=== PATIENT | female | born 1990 | race Caucasian/White ===

== ENCOUNTER 2023-08-10 20:05 | Emergency (ER) | payer SELFPAY ==
[~2023-08-10] VITALS: Ht 162.6 cm; Wt 69.0 kg
[2023-08-10 20:29] VITALS: O2SAT 100
[2023-08-10 21:06] LABS: BASOPHILS % 0.3 % (0.0-2.0); EOSINOPHILS % 0.6 % (0.0-5.0); HEMATOCRIT. 37.6 % (36.0-48.0); HEMOGLOBIN. 12.5 g/dL (12.0-16.0); LYMPHOCYTES % 32.2 % (20.0-50.0); MEAN CORPUSCULAR HEMOGLOBIN 30.3 pg (28.0-32.0); MEAN CORPUSCULAR HGB CONC 33.1 g/dL (31.0-37.0); MEAN CORPUSCULAR VOLUME 91.4 fL (81.0-99.0); MEAN PLATELET VOLUME 8.4 fl (7.4-10.4); NEUTROPHILS % 60.9 % (40.0-76.0); PLATELET 273 x1000/uL (130-400); RED BLOOD CELL COUNT 4.12 mill/uL (4.2-5.4); RED CELL DISTRIBUTION WIDTH 13.1 % (11.6-14.6); WHITE BLOOD COUNT 10.6 x1000/uL (4.5-11.0)
[2023-08-10 21:10] LABS: CHLORIDE 107 mEq/L (98-107); POTASSIUM 3.2 mEq/L (3.5-5.1); SODIUM 137 mEq/L (136-145)
[2023-08-10 21:11] LABS: CARBON DIOXIDE 20 mEq/L (21-32)
[2023-08-10 21:13] LABS: INR 0.9; PROTHROMBIN TIME 10.2 sec (9.6-11.0)
[2023-08-10 21:16] LABS: CREATININE 0.6 mg/dL (0.6-1.0); GLUCOSE 95 mg/dL (70-105)
[2023-08-10 21:18] LABS: UREA NITROGEN BLOOD < 5 mg/dL (9-23)
[2023-08-10 21:54] LABS: B-HCG QUANTITATIVE > 200000 mIU/mL (<3)
[2023-08-10] MEDS ORDERED: NITR-87 MT (23:22)
[2023-08-10] MEDS ORDERED: TOPUD MT (23:22)
[2023-08-11] MEDS: ONDANSETRON 4MG ODT PO ONE (01:00)
[2023-08-11 01:26] VITALS: BP 114/69; PULSE 67; RESP 19; TEMP 98.6
== END 2023-08-11 01:29 | disposition home or self-care (01) ==
LOC: ER 20:05
DX: O26.891 Other specified pregnancy related conditions, first trimester (principal); R30.0 Dysuria; R11.0 Nausea; Z3A.13 13 weeks gestation of pregnancy
CPT/HCPCS: 99284; 76801; 80048; 84702; 83690; 85025; 85610; 36415; 76817; Q0162